=== PATIENT | male | born 1990 | race Caucasian/White ===

== ENCOUNTER 2021-10-21 16:41 | Emergency (ER) | payer SELFPAY ==
[2021-10-21 17:07] VITALS: BP 123/64; PULSE 62; RESP 16; TEMP 37; O2SAT 97; BMI 20.5
[2021-10-21 17:13] LABS: Add Manual Diff / Slide Review NO; Basophils Absolute Auto 100 /uL (0-100); Eosinophils Absolute Auto 100 /uL (0-450); Eosinophils Percent Auto 2.4 % (2-4); Hematocrit 45.3 % (41-53); Hemoglobin 15.7 g/dL (13.5-17.5); Lymphocytes Absolute Auto 1500 /uL (1100-4500); Lymphocytes Percent Auto 26.3 % (25-40); Mean Corpuscular HGB Conc 34.6 % (30-36); Mean Corpuscular Hemoglobin 30.9 PG (26-34); Mean Corpuscular Volume 89.5 fL (80-100); Monocytes Absolute Auto 300 /uL (0-900); Monocytes Percent Auto 5.5 % (3-14); Neutrophils Absolute Auto 3600 /uL (1500-7000); Neutrophils Percent Auto 64.8 % (50-75); Platelet Count 169 X10^3/uL (150-400); Red Blood Cell Count 5.06 X10^6/uL (4.5-5.9); Red Cell Distribution Width 13.6 % (11.6-14.8); White Blood Cell Count 5.5 X10^3/uL (4.5-11.0)
[2021-10-21 17:29] LABS: Alanine Aminotransferase 18 IU/L (<50); Albumin 4.3 g/dL (3.5-5.0); Albumin Globulin Ratio 1.6 (1.0-2.8); Alkaline Phosphatase 60 U/L (38-126); Aspartate Aminotransferase 25 IU/L (17-59); BUN Creatinine Ratio 13.2 (6-22); Bilirubin Total 0.6 mg/dL (0.2-1.3); Blood Urea Nitrogen 10 mg/dL (9-20); Calcium 9.2 mg/dL (8.4-10.2); Carbon Dioxide 27 mmol/L (22-32); Chloride 107 mmol/L (98-107); Estimated Glomerular Filt Rate > 60.0 mL/min (>60); Globulin 2.7 g/dL (1.7-4.1); Glucose 129 mg/dL (70-100); HEMOLYSIS 19 (0-50); Potassium 3.9 mmol/L (3.4-5.1); Sodium 138 mmol/L (137-145)
--- NOTE | 2021-10-21 17:44 | ED_ITS ---
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 Patient states that he previously was on Topamax and Dilantin with b.i.d. dosing since he was 20 years old. He has been off these medications for 5 years since moving to [facility] from [place] due to cost of medications. Patient states that he has not had a seizure for 5 years. Patient woke up this morning feeling stiff and sore, he states that his brain was in a fog similar to how he fell after having a seizure in the past. He feels fairly confident that he had a seizure sometime during the night. He denies any nausea vomiting, injury from this presumed seizure, chest pain, headache, neck pain, fever or recent illness. He states that he smokes cigarettes and smokes marijuana but denies any other substances. He states he rarely drinks alcohol. He currently does not have a primary care provider or a neurologist, he is seeking both of these. Patient remembers his Topamax dosing but denies knowing his Dilantin dosing. He r equests starting these medications again. Related Data Previous Rx's Medication Instructions Recorded phenytoin sodium extended 100 mg 100 mg PO BID 30 Days #60 cap 10/21/21 capsule (Dilantin Extended) topiramate 25 mg tablet (Topamax) 25 mg PO DAILY 30 Days #30 tab 10/21/21 Allergies Allergy/AdvReac Type Severity Reaction Status Date / Time No Known Drug Allergies Allergy Verified 10/21/21 17:10 Review of Systems <GREG Ramírez - Last Filed: 10/21/21 19:34> Review of Systems Narrative: General: denies fever, chills Head/Neck: denies headache, neck pain Eyes: denies visual changes, eye pain Cardio: denies chest pain, palpitations Respiratory: denies shortness of breath, cough GI: denies abdominal pain, nausea, vomiting, or diarrhea : denies dysuria, hematuria MSK: denies joint pain, muscle weakness Skin: denies rash, itching Neuro: denies numbness, tingling Patient History <GREG Ramírez - Last Filed: 10/21/21 19:34> Social History Smoking Status: Never smoker Smoking Status: Never smoker alcohol intake frequency: a few times a month Substance Use Type: does not use Exam <GREG Ramírez - Last Filed: 10/21/21 19:34> Narrative Exam Narrative: Independently reviewed vitals signs and nursing notes. General: Awake, alert, nontoxic, no cardiorespiratory distress Head/Neck: Atraumatic, neck full range of motion Eyes: EOMI, conjunctiva normal Nose: nares patent, no rhinorrhea Mouth/Throat: moist mucus membranes, posterior pharynx normal, no oral lesions Cardio: Regular rate and rhythm, no peripheral edema Respiratory: respirations unlabored without wheezing, stridor, or rales. No retractions. GI: Abdomen soft, nontender MSK: Moves all extremities, neurovascularly intact Skin: Normal capillary refill, no rash Neuro: Normal speech and cognition, normal gait Initial Vital Signs Initial Vital Signs: Vital Signs Temperature 98.6 F 10/21/21 17:07 Pulse Rate 62 10/21/21 17:07 Respiratory Rate 16 10/21/21 17:07 Blood Pressure 123/64 10/21/21 17:07 Pulse Oximetry 97 10/21/21 17:07 <Parth Reed DO - Last Filed: 10/25/21 07:10> Initial Vital Signs Initial Vital Signs: Vital Signs Temperature 98.6 F 10/21/21 17:07 Pulse Rate 62 10/21/21 17:07 Respiratory Rate 16 10/21/21 17:07 Blood Pressure 123/64 10/21/21 17:07 Pulse Oximetry 97 10/21/21 17:07 Course <GREG Ramírez - Last Filed: 10/21/21 19:34> Orders Ordered: ED Orders 10/21/21 17:00 CBC Auto Diff [Complete Blood Count AUTO DIFF] Stat CMP [Comprehensive Metabolic Panel] Stat Vital Signs Vital signs: Vital Signs - 8 hr 10/21/21 17:07 Temperature 98.6 F Pulse Rate 62 Respiratory Rate 16 Blood Pressure 123/64 Pulse Oximetry 97 <Parth Reed DO - Last Filed: 10/25/21 07:10> Orders Ordered: ED Orders 10/21/21 17:00 CBC Auto Diff [Complete Blood Count AUTO DIFF] Stat CMP [Comprehensive Metabolic Panel] Stat Vital Signs Vital signs: Vital Signs - 8 hr 10/21/21 17:07 Temperature 98.6 F Pulse Rate 62 Respiratory Rate 16 Blood Pressure 123/64 Pulse Oximetry 97 MDM - Seizure <GREG Ramírez - Last Filed: 10/21/21 19:34> Lab Data Result diagrams: 10/21/21 17:00 10/21/21 17:00 Labs: Lab Results 10/21/21 10/21/21 Range/Units 17:00 17:00 WBC 5.5 (4.5-11.0) X10^3/uL RBC 5.06 (4.5-5.9) X10^6/uL Hgb 15.7 (13.5-17.5) g/dL Hct 45.3 (41-53) % MCV 89.5 (80-100) fL MCH 30.9 (26-34) PG MCHC 34.6 (30-36) % RDW 13.6 (11.6-14.8) % Plt Count 169 (150-400) X10^3/uL Neut % (Auto) 64.8 (50-75) % Lymph % (Auto) 26.3 (25-40) % [place] % (Auto) 5.5 (3-14) % Eos % (Auto) 2.4 (2-4) % Baso % (Auto) 1.0 (0-2) % Neut # (Auto) 3600 (7716-6233) /uL Lymph # (Auto) 1500 (6432-1944) /uL [place] # (Auto) 300 (0-900) /uL Eos # (Auto) 100 (0-450) /uL Baso # (Auto) 100 (0-100) /uL Sodium 138 (137-145) mmol/L Potassium 3.9 (3.4-5.1) mmol/L Chloride 107 (98-107) mmol/L Carbon Dioxide 27 (22-32) mmol/L BUN 10 (9-20) mg/dL Creatinine 0.76 (0.66-1.25) mg/dL Estimated GFR > 60.0 (>60) mL/min BUN/Creatinine Ratio 13.2 (6-22) Glucose 129 H (70-100) mg/dL Calcium 9.2 (8.4-10.2) mg/dL Total Bilirubin 0.6 (0.2-1.3) mg/dL AST 25 (17-59) IU/L ALT 18 (<50) IU/L Alkaline Phosphatase 60 (38-126) U/L Total Protein 7.0 (6.3-8.2) g/dL Albumin 4.3 (3.5-5.0) g/dL Globulin 2.7 (1.7-4.1) g/dL Albumin/Globulin Ratio 1.6 (1.0-2.8) MDM Narrative Medical decision making narrative: 30-year-old male with history of intracranial arachnoid cyst with seizures who presents to the emergency department after waking this morning feeling like he had a seizure overnight for the 1st time in 5 years. Patient has not been on medications for this for at least the last 5 years. He was previously on Topamax and Dilantin for his seizures, he is new in [facility], does not have a primary care provider or a neurologist. Patient denies any neurologic deficit this time, no focal neuro deficits on exam. Patient was referred to Dr. Jarrett rodríguez, he was given phone number to establish care with a primary care provider in [facility] but was also recommended to seek primary care providers in [place] where he is living. Patient I had shared decision making about medication dosing initiation. Opted to start him on his Topamax at 25 mg daily because he states he took 15 mg b.i.d. but is been 5 years since he took these, and started him 100 mg b.i.d. of phenytoin. Recommend patient follow-up with Dr. Rodríguez a soon as possible to help manage these medications. Patient was given strict return precautions for any additional seizures, headache, nausea v omiting, or neurologic complaint. Patient is appropriate and amenable to discharge home. Vital signs are stable on repeat examination is unremarkable. Patient has been informed of results. Patient has been given strict return to ER precautions for any new or worsening symptoms. Patient understands to follow up closely with outpatient providers as instructed. Patient understands plan and agrees to discharge home. All questions and concerns answered at this time. <Parth Reed, DO - Last Filed: 10/25/21 07:10> Lab Data Labs: Lab Results 10/21/21 10/21/21 Range/Units 17:00 17:00 WBC 5.5 (4.5-11.0) X10^3/uL RBC 5.06 (4.5-5.9) X10^6/uL Hgb 15.7 (13.5-17.5) g/dL Hct 45.3 (41-53) % MCV 89.5 (80-100) fL MCH 30.9 (26-34) PG MCHC 34.6 (30-36) % RDW 13.6 (11.6-14.8) % Plt Count 169 (150-400) X10^3/uL Neut % (Auto) 64.8 (50-75) % Lymph % (Auto) 26.3 (25-40) % [place] % (Auto) 5.5 (3-14) % Eos % (Auto) 2.4 (2-4) % Baso % (Auto) 1.0 (0-2) % Neut # (Auto) 3600 (7351-7429) /uL Lymph # (Auto) 1500 (5566-0705) /uL [place] # (Auto) 300 (0-900) /uL Eos # (Auto) 100 (0-450) /uL Baso # (Auto) 100 (0-100) /uL Sodium 138 (137-145) mmol/L Potassium 3.9 (3.4-5.1) mmol/L Chloride 107 (98-107) mmol/L Carbon Dioxide 27 (22-32) mmol/L BUN 10 (9-20) mg/dL Creatinine 0.76 (0.66-1.25) mg/dL Estimated GFR > 60.0 (>60) mL/min BUN/Creatinine Ratio 13.2 (6-22) Glucose 129 H (70-100) mg/dL Calcium 9.2 (8.4-10.2) mg/dL Total Bilirubin 0.6 (0.2-1.3) mg/dL AST 25 (17-59) IU/L ALT 18 (<50) IU/L Alkaline Phosphatase 60 (38-126) U/L Total Protein 7.0 (6.3-8.2) g/dL Albumin 4.3 (3.5-5.0) g/dL Globulin 2.7 (1.7-4.1) g/dL Albumin/Globulin Ratio 1.6 (1.0-2.8) Discharge Plan Departure Patient Disposition: Home Clinical Impression: Seizure, Intracranial arachnoid cyst Instructions: DI for Seizure Disorder -- Adult, DI for Seizure (Not Epilepsy/Seizure Disorder) Activity Restrictions/Additional Instructions: *You have been diagnosed with a seizure likely from your arachnoid cyst. Since it has been 5 years since you have had a seizure or been on medication for seizures please focus your efforts on establishing a primary care provider. Please call [phone] and asked to make the soonest available primary care appointment with a new provider for follow-up from the emergency department. I have attached Dr. Rodríguez's information, he is a in neurologist based in [facility] at [facility]. Please call and set up the 1st available appointment with him to discuss your arachnoid cyst and recent seizure, it would be preferred if he managed your seizure medication as well. You can let them know that this is follow-up from your emergency department visit and you like the soonest available appointment because of this. Please return to the emergency department if you have another seizure, or if you have any injuries. Please remember that you are not allowed to drive a vehicle for the next 6 months until you are cleared by a primary care provider or a neurologist. Please be safe. *What to do: *Please continue to take your regular medications as directed. [x ] New medication prescriptions sent to your pharmacy: [ [facility]] [ ] New medication written as a paper prescription [ ] No new medications given *Please follow up with your primary care provider in 2-3 days, call for an appointment. Let them know you were seen in the Emergency Department and that we asked that you be seen for follow-up. We will electronically transmit a record of today's note if your PCP is in our system *If you do not have a primary care provider please contact [phone] to establish care with one of the [facility] primary care providers. *Return to Emergency Department if you should have any new, worsening or concerning symptoms, such as [fever greater than 101F, chills, worsening pain, persistent vomiting or other bothersome symptoms] Prescriptions: New topiramate [Topamax] 25 mg tablet 25 mg PO DAILY 30 Days Qty: 30 0RF phenytoin sodium extended [Dilantin Extended] 100 mg capsule 100 mg PO BID 30 Days Qty: 60 0RF Referrals: Jarrett Rodríguez MD [Non-Staff] - As soon as possible Stand Alone Forms: Work Release Note <Parth Reed, - Last Filed: 10/25/21 07:10> Cosign ED Attending Cosignature Attestation: Dr Reed Co-Sign Statement: I was available for consultation during this patient's emergency department visit. This chart is signed by myself for administrative purposes only. I did not have direct contact with this patient during this visit. They were seen independently by the APC.
== END 2021-10-21 17:49 | disposition home or self-care (01) ==
PROVIDERS: Emergency Provider Nurse Practitioner Critical Care Medicine
DX: G40.909 Epilepsy, unspecified, not intractable, without status epilepticus (principal); G93.0 Cerebral cysts; F17.210 Nicotine dependence, cigarettes, uncomplicated
CPT/HCPCS: 80053; 85025; 99281; 99283